=== PATIENT | female | born 1980 | race Hispanic/Latino ===

== ENCOUNTER → 2016-12-30 | Outpatient (CLI) | payer OTHER | LOC: LAB 07:57 | PROVIDERS: ATTEND Family Medicine | DX: Z13.220 Encounter for screening for lipoid disorders (principal); Z01.419 Encounter for gynecological examination (general) (routine) without abnormal findings | CPT/HCPCS: 36415; 80061; 84443 ==

== ENCOUNTER → 2017-03-03 | Outpatient (CLI) | payer OTHER ==
[2017-03-04 15:01] LABS: RUBELLA AB IGG 5.61 OD Ratio (>1.09)
== END ==
LOC: LAB 11:31
PROVIDERS: ATTEND Obstetrics & Gynecology Reproductive Endocrinology
DX: Z31.41 Encounter for fertility testing (principal); Z11.59 Encounter for screening for other viral diseases
CPT/HCPCS: 36415; 82670; 83001; 83516; 84146; 84443; 86762; 86850; 86900; 86901